=== PATIENT | male | born 1955 | race African-American/Black ===

== ENCOUNTER 2019-06-21 12:06 | Emergency (ER) | payer MEDICARE, MEDICAID ==
[2019-06-21] MEDS ORDERED: NORMAL SALINE 1000 ML 1,000 ML IV ONE (13:19)
[2019-06-21] MEDS ORDERED: MORPHINE SULFATE 10 MG/ML INJ IV ONE (13:19)
--- NOTE | 2019-06-21 13:21 | ER Document Report ---
ED Medical Screen (RME) - General Chief Complaint: Abdominal Pain Stated Complaint: ABDOMINAL PAIN Time Seen by Provider: 06/21/19 13:19 Primary Care Provider: RUTH CORTEZ MD [Primary Care Provider] - Follow up as needed Notes: 63-year-old male with a past medical history of pancreatitis presents emergency department with some abdominal pain. He has had on and off pain for the past 2 weeks. The pain is in his mid upper abdomen. Denies any nausea or vomiting. States he drinks beer every day. States that his blood pressure is also high in the emergency department. He does not take any medications. Denies any other past medical history. Exam: Mildly tender mid abdomen. I have greeted and performed a rapid initial assessment of this patient. A comprehensive ED assessment and evaluation of the patient, analysis of test results and completion of medical decision making process will be conducted by an additional ED providers. TRAVEL OUTSIDE OF THE [place] IN LAST 30 DAYS: No - Related Data Allergies/Adverse Reactions: No Known Allergies Allergy (Verified 06/21/19 12:07) Physical Exam - Vital signs Vitals: Temp Pulse Resp BP Pulse Ox 98 F 76 17 175/114 H 97 06/21/19 12:16 06/21/19 12:16 06/21/19 12:16 06/21/19 12:16 06/21/19 12:16 Course - Vital Signs Vital signs: Temp Pulse Resp BP Pulse Ox 98 F 76 17 175/114 H 97 06/21/19 12:16 06/21/19 12:16 06/21/19 12:16 06/21/19 12:16 06/21/19 12:16 Doctor's Discharge - Discharge Referrals: RUTH CORTEZ MD [Primary Care Provider] - Follow up as needed
[2019-06-21 13:39] LABS: APPEARANCE,URINE CLEAR; BILIRUBIN,URINE NEGATIVE (NEGATIVE); COLOR,URINE STRAW; GLUCOSE, URINE NEGATIVE (NEGATIVE); KETONES,URINE NEGATIVE (NEGATIVE); LEUKOCYTE ESTERASE,URINE NEGATIVE (NEGATIVE); NITRITE,URINE NEGATIVE (NEGATIVE); PROTEIN,URINE NEGATIVE (NEGATIVE); URINE SPECIFIC GRAVITY 1.001; UROBILINOGEN,URINE NEGATIVE mg/dL (<2.0)
[2019-06-21 14:08] LABS: ABSOLUTE LYMPHOCYTES (AUTO) 0.7 10^3/uL (0.5-4.7); ABSOLUTE MONOCYTES (AUTO) 0.3 10^3/uL (0.1-1.4); ABSOLUTE NEUT (AUTO) 1.1 10^3/uL (1.7-8.2); BASOPHILS % (AUTO) 1.9 % (0-2); EOSINOPHILS % (AUTO) 0.7 % (0-6); HEMATOCRIT 33.3 % (37.9-51.0); HEMOGLOBIN 11.2 g/dL (13.5-17.0); LYMPHOCYTES % (AUTO) 32.6 % (13-45); MEAN CORPUSCULAR HEMOGLOBIN 31.7 pg (27.0-33.4); MEAN CORPUSCULAR HGB CONC 33.8 g/dL (32.0-36.0); MEAN CORPUSCULAR VOLUME 94 fl (80-97); MONOCYTES % (AUTO) 15.4 % (3-13); PLATELET COUNT 174 10^3/uL (150-450); RED BLOOD COUNT 3.55 10^6/uL (4.35-5.55); RED CELL DISTRIBUTION WIDTH 15.1 % (11.5-14.0); SEGMENTED NEUTROPHILS % (AUTO) 49.4 % (42-78); TOTAL CELLS COUNTED % (AUTO) 100 %; WHITE BLOOD COUNT 2.1 10^3/uL (4.0-10.5)
[2019-06-21 14:29] LABS: ALBUMIN 3.8 g/dL (3.5-5.0); ALKALINE PHOSPHATASE 104 U/L (38-126); ANION GAP 13 (5-19); ASPARTATE AMINO TRANSFERASE 148 U/L (17-59); BILIRUBIN,DIRECT 0.6 mg/dL (0.0-0.4); BILIRUBIN,TOTAL 0.7 mg/dL (0.2-1.3); CALCIUM 8.4 mg/dL (8.4-10.2); CARBON DIOXIDE 27 mmol/L (22-30); CHLORIDE 94 mmol/L (98-107); GLUCOSE 81 mg/dL (75-110); POTASSIUM 3.7 mmol/L (3.6-5.0); TOTAL PROTEIN 8.6 g/dL (6.3-8.2)
[2019-06-21 14:30] LABS: BLOOD UREA NITROGEN < 2 mg/dL (7-20)
[2019-06-21] MEDS ORDERED: CLONIDINE HCL 0.2 MG TABLET PO ONE (16:04)
[2019-06-21] MEDS ORDERED: LABETALOL HCL INJ 20 MG/4 ML DISP.SYRIN IV ONE ×2 (16:04→17:24)
--- NOTE | 2019-06-21 16:07 | ER Document Report ---
ED GI/ - General Chief Complaint: Abdominal Pain Stated Complaint: ABDOMINAL PAIN Time Seen by Provider: 06/21/19 13:19 Primary Care Provider: RUTH CORTEZ MD [ACTIVE STAFF] - Follow up as needed Mode of Arrival: Ambulatory Information source: Patient, Relative TRAVEL OUTSIDE OF THE [place] IN LAST 30 DAYS: No - HPI Patient complains to provider of: Abdominal pain - pt has h/o pancreatitis and has been drinking beer daily for the past several weeks. He also states he has run out of his BP meds and wants a refill of these. Denies MONAHAN, N,V - Related Data Allergies/Adverse Reactions: No Known Allergies Allergy (Verified 06/21/19 12:07) Past Medical History - General Information source: Patient, Relative - Social History Smoking Status: Never Smoker Frequency of alcohol use: Heavy Drug Abuse: None Family History: None Patient has suicidal ideation: No Patient has homicidal ideation: No Renal/ Medical History: Denies: Hx Peritoneal Dialysis Review of Systems - Review of Systems Constitutional: No symptoms reported EENT: No symptoms reported Cardiovascular: No symptoms reported Respiratory: No symptoms reported Gastrointestinal: See HPI, Abdominal pain Musculoskeletal: No symptoms reported -: Yes All other systems reviewed and negative Physical Exam - Vital signs Vitals: Temp Pulse Resp BP Pulse Ox 98 F 76 17 175/114 H 97 06/21/19 12:16 06/21/19 12:16 06/21/19 12:16 06/21/19 12:16 06/21/19 12:16 - General General appearance: Appears well In distress: None - HEENT Pharynx: Normal Neck: Normal - Respiratory Respiratory status: No respiratory distress Breath sounds: Normal - Cardiovascular Rhythm: Regular Heart sounds: Normal auscultation Murmur: No - Abdominal Inspection: Normal Distension: No distension Bowel sounds: Normal Tenderness: Tender - there is min TTP diffusely without peritoneal signs. Course - Re-evaluation Re-evalutation: 06/21/19 17:58 pt felt much better at time of d/c -- BP 170/100. Expressed desire to go home with family - Vital Signs Vital signs: Temp Pulse Resp BP Pulse Ox 98 F 76 17 186/114 H 97 06/21/19 12:16 06/21/19 12:16 06/21/19 12:16 06/21/19 17:27 06/21/19 12:16 - Laboratory Result Diagrams: 06/21/19 13:41 06/21/19 13:41 Laboratory results interpreted by me: 06/21/19 06/21/19 13:41 13:41 WBC 2.1 L RBC 3.55 L Hgb 11.2 L Hct 33.3 L RDW 15.1 H Monocytes % 15.4 H Absolute Neutrophils 1.1 L Sodium 133.9 L Chloride 94 L BUN < 2 L Creatinine 0.43 L Direct Bilirubin 0.6 H AST 148 H Total Protein 8.6 H - Diagnostic Test Radiology reviewed: Reports reviewed - ct- neg Discharge - Discharge Clinical Impression: Abdominal pain Qualifiers: Abdominal location: generalized Qualified Code(s): R10.84 - Generalized abdominal pain Hypertension Qualifiers: Hypertension type: essential hypertension Qualified Code(s): I10 - Essential (primary) hypertension Condition: Stable Disposition: HOME, SELF-CARE Instructions: Abdominal Pain ([facility]) Additional Instructions: rest, avoid alcohol, take meds as prescribed, return if worse Prescriptions: Clonidine HCl [Catapres 0.2 mg Tablet] 0.2 mg PO Q12 #60 tab Referrals: RUTH CORTEZ MD [ACTIVE STAFF] - Follow up as needed KEVIN CUTLER MD [ACTIVE STAFF] - Follow up as needed
--- NOTE | 2019-06-21 17:44 | RADIOLOGY REPORT (SQ) ---
EXAM DESCRIPTION: CT ABD/PELVIS WITH IV ONLY COMPLETED DATE/TIME: 06/21/2019 5:00 pm REASON FOR STUDY: abd pain COMPARISON: None. TECHNIQUE: CT scan of the abdomen and pelvis performed using helical scanning technique with dynamic intravenous contrast injection. No oral contrast. Images reviewed with lung, soft tissue, and bone w indows. Reconstructed coronal and sagittal MPR images reviewed. Delayed images for evaluation of the urinary system also acquired. All images stored on PACS. All CT scanners at this facility use dose modulation, iterative reconstruction, and/or weight based d osing when appropriate to reduce radiation dose to as low as reasonably achievable (ALARA). [facility]: Dose Right [facility]: CareDose [facility]: Dose Right [facility]: Teradose 4D [facility]: zuuka! CONTRAST TYPE AND DOSE: contrast/concentration: Isovue 350.00 mg/ml; Total Contrast Delivered: 65.0 ml; Total Saline Delivered: 65.0 ml RENAL FUNCTION: GFR > 60. RADIATION DOSE: CT Rad equipment meets quality standard of care and radiation dose reduction techniq ues were employed. CTDIvol: 4.8 mGy. DLP: 547 mGy-cm.. LIMITATIONS: None. FINDINGS: LOWER CHEST: No significant findings. LIVER: Normal size. Diffuse fatty infiltration. No enhancing masses. No dilated ducts. SPLEEN: Normal size. No focal lesions. PANCREAS: No masses identified. No significant calcifications. No adjacent inflammation or peripancre atic fluid collections. Pancreatic duct not dilated. GALLBLADDER: No calcified stones. No inflammatory changes to suggest cholecystitis. ADRENAL GLANDS: No significant masses. RIGHT KIDNEY AND URETER: No cysts identified. No solid masses identified. No calcified stones. No hyd ronephrosis or hydroureter. LEFT KIDNEY AND URETER: No cysts identified. No solid masses identified. No calcified stones. No hydr onephrosis or hydroureter. AORTA AND VESSELS: No aneurysm. No dissection. Renal arteries, SMA, celiac without significant stenos is. RETROPERITONEUM: No bulky retroperitoneal adenopathy. BOWEL AND PERITONEAL CAVITY: No obstruction or inflammatory changes. No free fluid. APPENDIX: Normal. PELVIS: No mass. No free fluid. Unremarkable bladder. ABDOMINAL WALL: No masses. No hernias. BONES: No acute findings. OTHER: No other significant finding. IMPRESSION: NO ACUTE FINDINGS IN THE ABDOMEN OR PELVIS ON CT SCAN WITH IV CONTRAST. Fatty liver. TECHNICAL DOCUMENTATION: JOB ID: [id number] Quality ID # [id number]: Final reports with documentation of one or more dose reduction techniques (e.g., Au tomated exposure control, adjustment of the mA and/or kV according to patient size, use of iterative reconstruction technique) 2010 [employer]- All Rights Reserved Reading location - IP/workstation name: [email or web address]
[2019-06-21 18:53] VITALS: BP 185/117
== END 2019-06-21 18:53 | disposition home or self-care (01) ==
LOC: ER 12:06
DX: R10.84 Generalized abdominal pain (principal); R10.817 Generalized abdominal tenderness; I10 Essential (primary) hypertension; Z76.0 Encounter for issue of repeat prescription
CPT/HCPCS: 96376; 99284; 96361; 96374; 96375; 36415; 83690; 85025; 80053; 81001; 74177; A9270; J3490; J2270; J7030

== ENCOUNTER 2019-07-01 10:16 | Emergency (ER) | payer MEDICARE, MEDICAID ==
[2019-07-01] MEDS ORDERED: THIAMINE HCL 100 MG, FOLIC ACID 1 MG in NORMAL SALINE 250 ML IV ONE (10:39)
--- NOTE | 2019-07-01 10:46 | ER Document Report ---
ED General - General Chief Complaint: Blood Pressure Problem Stated Complaint: UNRESPONSIVE Time Seen by Provider: 07/01/19 10:28 Primary Care Provider: [facility] JCARLOS YOUNGER [NO LOCAL MD] - Follow up in 3-5 days KOKI SANTANA MD [Primary Care Provider] - Follow up as needed Mode of Arrival: Medic Information source: Patient, Friend, Emergency Med Personnel, [facility] Records Notes: 63-year-old male with hypertension, previous history of pancreatitis presents via EMS from home after his sister called him and noticed that he was mumbling. Patient is a known chronic alcoholic and states he had one beer last night. Upon EMS arrival they report that the patient was unresponsive to painful stimuli. BGL at that time was 65 and patient was administered glucose with a repeat glucose of 161 upon arrival to the emergency department. Patient is alert, awake and oriented x2. He knows his birthday where he is but cannot tell me the year. Patient's cousin is at the bedside and states that the patient has been slowly declining due to his alcoholism. He has lost weight, become more confused and he refuses to go to his doctor's office or eat. Patient has no ph ysical complaints at this time. He states that he did eat a sandwich this morning. Patient was seen in the emergency department approximately 10 days ago and started on clonidine 0.2 mg twice daily TRAVEL OUTSIDE OF THE [place] IN LAST 30 DAYS: No - HPI Onset: Just prior to arrival Onset/Duration: Sudden Quality of pain: No pain Severity: None Pain Level: Denies Associated symptoms: None, Slow to respond. denies: Chest pain, Diarrhea, Headache, Nausea, Vomiting, Shortness of breath, Weakness Exacerbated by: Denies Relieved by: Denies Similar symptoms previously: Yes Recently seen / treated by doctor: Yes - Related Data Allergies/Adverse Reactions: No Known Allergies Allergy (Verified 07/01/19 10:19) Past Medical History - General Information source: Patient, Relative, Emergency Med Personnel, [facility] Records - Social History Smoking Status: Never Smoker Chew tobacco use (# tins/day): No Frequency of alcohol use: Heavy Drug Abuse: None Lives with: Alone Family History: None Patient has suicidal ideation: No Patient has homicidal ideation: No - Past Medical History Cardiac Medical History: Reports: Hx Hypertension Renal/ Medical History: Denies: Hx Peritoneal Dialysis Review of Systems - Review of Systems Notes: REVIEW OF SYSTEMS: CONSTITUTIONAL : Denies fever, chills, or sweats. Denies recent illness. Denies weight loss, recent hospitalizations. EENT: Denies visual changes, eye pain. Denies sore throat, oral lesions, difficulty swallowing. CARDIOVASCULAR: Denies chest pain. Denies palpitations. Denies lower extremity edema. RESPIRATORY: Denies cough. Denies shortness of breath, wheezing. GASTROINTESTINAL: Denies abdominal pain or distention. Denies nausea, vomiting, or diarrhea. Denies blood in vomitus, stools, or per rectum. Denies black, tarry stools. Denies constipation. GENITOURINARY: Denies difficulty urinating, painful urination, frequency, blood in urine, testicular pain or penile discharge. MUSCULOSKELETAL: Denies back or neck pain or stiffness. Denies joint pain or swelling. SKIN: Denies rash, lesions or sores. HEMATOLOGIC : Denies easy bruising or bleeding. LYMPHATIC: Denies swollen glands. NEUROLOGICAL: Denies confusion or altered mental status. Denies loss of consciousness. Denies dizziness or lightheadedness. Denies headache. Denies weakness or paralysis. Denies problems difficulty with ambulation, slurred speech. Denies sensory loss, numbness, or tingling. Denies seizures. PSYCHIATRIC: Denies anxiety or stress. Denies depression, suicidal ideation, Physical Exam - Vital signs Vitals: Resp Pulse Ox 11 L 97 07/01/19 10:24 07/01/19 10:24 - Notes Notes: PHYSICAL EXAMINATION: GENERAL: Unkept well-nourished and in no acute distress. HEAD: Atraumatic, normocephalic. EYES: Pupils equal round and reactive to light, extraocular movements intact, sclera anicteric, conjunctiva are normal. ENT: Nares patent, oropharynx clear without exudates. Moist mucous membranes. NECK: Normal range of motion, supple without lymphadenopathy LUNGS: Breath sounds clear to auscultation bilaterally and equal. No wheezes rales or rhonchi. HEART: Regular rate and rhythm without murmurs ABDOMEN: Soft, nontender, nondistended abdomen. No guarding, no rebound. left inguinal swelling,non-tender. No erythema,warmth, fluctuance. suspect hernia Musculoskeletal: Normal range of motion, mild nonpitting edema bilaterally. No cyanosis. NEUROLOGICAL: Cranial nerves grossly intact. Normal speech, normal gait. Normal sensory, motor exams PSYCH: Normal mood, normal affect. SKIN: Chronic skin color changes. Course - Re-evaluation Re-evalutation: Temp Pulse Resp BP Pulse Ox 97.7 F 15 151/96 H 96 07/01/19 10:37 07/01/19 10:36 07/01/19 10:33 07/01/19 10:36 07/01/19 10:44 63-year-old male with a history of alcoholism presents via EMS after the sister became concerned while talking to him on the phone. Upon their arrival EMS reported that the patient was unresponsive to painful stimuli. Sugar found to be 65. Dextrose was administered and upon patient's arrival to the emergency department he is alert and oriented x2 which the cousin reports is the patient's baseline. EMS reported that the patient was initially hypotensive with a blood pressure of 80/40. After 500 cc of IV fluids patient's recent blood pressure is 139/90 with a heart rate of 78. 07/01/19 16:12 Rectal exam is negative for occult blood. Patient did receive calcium gluco dang, thiamine, folate. I did discuss patient with hospitalist who feels the patient does not need admission at this time and that his pancytopenia is common with alcoholism. Family is at the bedside and states that they do not believe the patient is interested and stopping drinking. Patient does not have a power of director internal control. Patient's blood pressure has responded to fluids and is now 151/96. 07/01/19 17:45 I have spoken at length with the family regarding the patient's opportunity to go to [facility] here in [place]. Family members at the bedside are trying to convince the patient to voluntarily go. Patient is considering. 07/01/19 18:11 Patient agreeable to rehab. Nurse calling facility for bed availability. Patient repeat alcohol is 210. Calcium corrected. Minor tremors but no tachycardia, delirium. Cooperative, conversing with family. Valium administered for concern for withdrawl prior to ETOH result. He is awake eating and cooperative. States "I'll go" when asked if he was willing to attempt detox. This is voluntary. Patient to be discharged and family at bedside stating they will bring patient to [facility]. 07/03/19 00:39 - Vital Signs Vital signs: Temp Pulse Resp BP Pulse Ox 97.7 F 13 176/108 H 98 07/01/19 10:37 07/01/19 19:01 07/01/19 19:01 07/01/19 19:01 - Laboratory Result Diagrams: 07/01/19 10:25 07/01/19 17:45 Laboratory results interpreted by me: 07/01/19 07/01/19 07/01/19 10:25 10:25 10:25 WBC 1.6 L RBC 2.91 L Hgb 9.2 L Hct 27.5 L RDW 15.0 H Plt Count 105 L Abs Neuts (Manual) 1.1 L Sodium 132.0 L Potassium 3.4 L Chloride 96 L BUN 2 L Glucose 150 H POC Glucose Lactic Acid 2.6 H Calcium 6.9 L* AST 117 H Ammonia Albumin 2.8 L Urine Glucose (UA) Urine Blood Salicylates < 1.0 L Acetaminophen < 10 L Serum Alcohol 314 H* 07/01/19 07/01/19 07/01/19 10:28 11:10 13:42 WBC RBC Hgb Hct RDW Plt Count Abs Neuts (Manual) Sodium Potassium Chloride BUN Glucose POC Glucose 176 H Lactic Acid Calcium AST Ammonia < 8.7 L Albumin Urine Glucose (UA) 50 H Urine Blood SMALL H Salicylates Acetaminophen Serum Alcohol 07/01/19 07/01/19 17:45 18:00 WBC RBC Hgb Hct RDW Plt Count Abs Neuts (Manual) Sodium 134.8 L Potassium Chloride 93 L BUN 3 L Glucose POC Glucose Lactic Acid 4.0 H Calcium AST Ammonia Albumin Urine Glucose (UA) Urine Blood Salicylates Acetaminophen Serum Alcohol - Diagnostic Test Radiology reviewed: Image reviewed, Reports reviewed - EKG Interpretation by Me EKG shows normal: Sinus rhythm Rate: Normal Rhythm: NSR - QTC 477 Discharge - Discharge Clinical Impression: Left inguinal hernia, Alcoholism, Hypocalcemia Alcohol intoxication Qualifiers: Complication of substance-induced condition: uncomplicated Qualified Code(s): F10.920 - Alcohol use, unspecified with intoxication, uncomplicated Malnutrition Qualifiers: Malnutrition type: protein-calorie malnutrition Protein-calorie malnutrition severity: mild Qualified Code(s): E44.1 - Mild protein-calorie malnutrition HTN (hypertension) Qualifiers: Hypertension type: unspecified Qualified Code(s): I10 - Essential (primary) hypertension Condition: Good Disposition: OTHER Instructions: Chronic Alcoholism ([facility]), Hernia ([facility]) Additional Instructions: Follow up with your [id number] hours for further care or return to the ED IMMEDIATELY if symptoms worsen or you have any concerns. If you cannot afford to follow up with your primary care physician a list of low cost clinics have been provided at the end of your discharge papers as well. Most prescribed medications have multiple side effects. The safest thing to do is when filling your prescription speak to your pharmacist regarding possible interactions with your normal home medications and over the counter medications such as Ibuprofen, Tylenol, Benadryl. If you experience any symptoms that cause you discomfort or concern you should discontinue the medication immediately and return to the emergency room or call your primary care physician. Recommendations: It is recommended to followup with a primary care doctor within the next 2 days. If you do not have a primary care doctor or you are unable to get an apointment during that time, I left the number for some internal medicine physicians that are [facility] Dr. Jeyson Hernandez [facility] [address], [place] [address] [phone] Dr Araujo Address: [address] [place] [address] Dr Perez Address: [address] [place] [address] Prescriptions: Clonidine HCl [Catapres 0.2 mg Tablet] 0.2 mg PO Q12 #60 tab Forms: Elevated Blood Pressure Referrals: KOKI SANTANA MD [Primary Care Provider] - Follow up as needed [facility] [NO LOCAL MD] - Follow up in 3-5 days
[2019-07-01 11:00] LABS: VENOUS BLOOD HCO3 27.2 mmol/L (20-32); VENOUS BLOOD PCO2 45.6 mmHg (35-63); VENOUS BLOOD PH 7.39 (7.30-7.42)
[2019-07-01 11:03] LABS: HEMATOCRIT 27.5 % (37.9-51.0); HEMOGLOBIN 9.2 g/dL (13.5-17.0); MEAN CORPUSCULAR HEMOGLOBIN 31.7 pg (27.0-33.4); MEAN CORPUSCULAR HGB CONC 33.6 g/dL (32.0-36.0); MEAN CORPUSCULAR VOLUME 95 fl (80-97); PLATELET COUNT 105 10^3/uL (150-450); RED BLOOD COUNT 2.91 10^6/uL (4.35-5.55)
[2019-07-01 11:24] LABS: ALBUMIN 2.8 g/dL (3.5-5.0); ALKALINE PHOSPHATASE 69 U/L (38-126); ANION GAP 12 (5-19); ASPARTATE AMINO TRANSFERASE 117 U/L (17-59); BILIRUBIN,DIRECT 0.3 mg/dL (0.0-0.4); BILIRUBIN,TOTAL 0.4 mg/dL (0.2-1.3); BLOOD UREA NITROGEN 2 mg/dL (7-20); CARBON DIOXIDE 24 mmol/L (22-30); CHLORIDE 96 mmol/L (98-107); GLUCOSE 150 mg/dL (75-110); POTASSIUM 3.4 mmol/L (3.6-5.0); TOTAL PROTEIN 6.3 g/dL (6.3-8.2)
[2019-07-01 11:27] LABS: ACETAMINOPHEN < 10 ug/mL (10-30); SALICYLATE < 1.0 mg/dL (2.0-20.0)
[2019-07-01 11:29] LABS: WHITE BLOOD COUNT 1.6 10^3/uL (4.0-10.5)
[2019-07-01 11:33] LABS: ABSOLUTE LYMPHOCYTES# (MANUAL) 0.5 10^3/uL (0.5-4.7); ABSOLUTE MONOCYTES # (MANUAL) 0.1 10^3/uL (0.1-1.4); BASOPHILS % (MANUAL) 0 % (0-2); EOSINOPHILS % (MANUAL) 0 % (0-6); LYMPHOCYTES % (MANUAL) 30 % (13-45); MONOCYTES % (MANUAL) 4 % (3-13); SEGMENTED NEUTROPHILS % (MAN) 66 % (42-78); TOTAL CELLS COUNTED 50
[2019-07-01 11:34] LABS: APPEARANCE,URINE CLEAR; BILIRUBIN,URINE NEGATIVE (NEGATIVE); COLOR,URINE STRAW; GLUCOSE, URINE 50 mg/dL (NEGATIVE); KETONES,URINE NEGATIVE (NEGATIVE); LEUKOCYTE ESTERASE,URINE NEGATIVE (NEGATIVE); NITRITE,URINE NEGATIVE (NEGATIVE); PROTEIN,URINE NEGATIVE (NEGATIVE); URINE SPECIFIC GRAVITY 1.003; UROBILINOGEN,URINE NEGATIVE mg/dL (<2.0)
[2019-07-01 11:35] LABS: ANISOCYTOSIS 1+; PAPPENHEIMER BODIES PRESENT; POIKILOCYTOSIS SLIGHT; TARGET CELLS 1+; TEAR DROP CELLS SLIGHT
[2019-07-01 11:36] LABS: ALCOHOL 314 mg/dL (NONE DETECTED); CALCIUM 6.9 mg/dL (8.4-10.2); PLATELET COMMENT DECREASED
[2019-07-01 11:49] LABS: URINE AMPHETAMINES SCREEN NEGATIVE; URINE BARBITURATES SCREEN NEGATIVE; URINE BENZODIAZEPINES SCREEN NEGATIVE; URINE COCAINE SCREEN NEGATIVE; URINE MARIJUANA (THC) SCREEN NEGATIVE; URINE METHADONE SCREEN NEGATIVE; URINE PHENCYCLIDINE SCREEN NEGATIVE
--- NOTE | 2019-07-01 11:58 | RADIOLOGY REPORT (SQ) ---
EXAM DESCRIPTION: CT HEAD WITHOUT COMPLETED DATE/TIME: 07/01/2019 11:29 am REASON FOR STUDY: ams COMPARISON: None. TECHNIQUE: Axial images acquired through the brain without intravenous contrast. Images reviewed wi th bone, brain and subdural windows. Additional sagittal and coronal reconstructions were generated. Images stored on PACS. All CT scanners at this facility use dose modulation, iterative reconstruction, and/or weight based d osing when appropriate to reduce radiation dose to as low as reasonably achievable (ALARA). [facility]: Dose Right [facility]: CareDose [facility]: Dose Right [facility]: Teradose 4D [facility]: [employer] RADIATION DOSE: CT Rad equipment meets quality standard of care and radiation dose reduction techniq ues were employed. CTDIvol: 53.2 mGy. DLP: 991 mGy-cm. mGy. LIMITATIONS: None. FINDINGS: VENTRICLES: Global prominence. CEREBRUM: No masses. No hemorrhage. No midline shift. No evidence for acute infarction. Normal gra y/white matter differentiation. No areas of low density in the white matter. CEREBELLUM: No masses. No hemorrhage. No alteration of density. No evidence for acute infarction. EXTRAAXIAL SPACES: No hemorrhage or mass. Mild prominence presumably related atrophy. ORBITS AND GLOBE: No intra- or extraconal masses. Normal contour of globe without masses. CALVARIUM: No fracture. PARANASAL SINUSES: No fluid or mucosal thickening. SOFT TISSUES: No mass or hematoma. OTHER: No other significant finding. IMPRESSION: Atrophy. Associated ventriculomegaly. No acute or suspicious intracranial abnormality appreciated. EVIDENCE OF ACUTE STROKE: NO. COMMENT: Quality ID # [id number]: Final reports with documentation of one or more dose reduction techniques (e.g., Automated exposure control, adjustment of the mA and/or kV according to patient size, use of iterative reconstruction technique) TECHNICAL DOCUMENTATION: JOB ID: [id number] [address]- All Rights Reserved Reading location - IP/workstation name: [email or web address]
--- NOTE | 2019-07-01 12:07 | RADIOLOGY REPORT (SQ) ---
EXAM DESCRIPTION: CHEST 2 VIEWS COMPLETED DATE/TIME: 07/01/2019 11:34 am REASON FOR STUDY: ams COMPARISON: None. EXAM PARAMETERS: NUMBER OF VIEWS: two views TECHNIQUE: Digital Frontal and Lateral radiographic views of the chest acquired. RADIATION DOSE: NA LIMITATIONS: none FINDINGS: LUNGS AND PLEURA: No opacities, masses or pneumothorax. No pleural effusion. MEDIASTINUM AND HILAR STRUCTURES: No masses or contour abnormalities. HEART AND VASCULAR STRUCTURES: Heart normal size. No evidence for failure. BONES: Old appearing left-sided rib fractures. HARDWARE: None in the chest. OTHER: No other significant finding. IMPRESSION: NO ACUTE RADIOGRAPHIC FINDING IN THE CHEST. TECHNICAL DOCUMENTATION: JOB ID: [id number]- All Rights Reserved Reading location - IP/workstation name: [email or web address]
[2019-07-01] MEDS ORDERED: CALCIUM GLUCONATE 1000 MG/10 ML INJ IV ONE ×2 (12:32→16:02)
--- NOTE | 2019-07-01 14:39 | EKG REPORT ---
SEVERITY:- BORDERLINE ECG - SINUS RHYTHM PROBABLE LEFT ATRIAL ABNORMALITY BORDERLINE PROLONGED QT INTERVAL : Confirmed by: Akila Galeana 01-Jul-2019 14:39:05
[2019-07-01] MEDS ORDERED: RINGERS SOLUTION,LACTATED 1,000 ML IV ONE (16:02)
[2019-07-01] MEDS ORDERED: DIAZEPAM INJ 10 MG/2 ML DISP.SYRIN IV ONE ×2 (16:59→18:10)
--- NOTE | 2019-07-01 18:03 | RADIOLOGY REPORT (SQ) ---
EXAM DESCRIPTION: CT ABD/PELVIS WITH IV ONLY COMPLETED DATE/TIME: 07/01/2019 5:42 pm REASON FOR STUDY: left inguinal mass COMPARISON: 06/21/2019 TECHNIQUE: CT scan of the abdomen and pelvis performed using helical scanning technique with dynamic intravenous contrast injection. No oral contrast. Images reviewed with lung, soft tissue, and bone windows. Reconstructed coronal and sagittal MPR images reviewed. Delayed images for evaluation of the urinary system also acquired. All images stored on PACS. All CT scanners at this facility use dose modulation, iterative reconstruction, and/or weight based d osing when appropriate to reduce radiation dose to as low as reasonably achievable (ALARA). [facility]: Dose Right [facility]: CareDose [facility]: Dose Right [facility]: Teradose 4D [facility]: [employer] CONTRAST TYPE AND DOSE: contrast/concentration: Isovue 350.00 mg/ml; Total Contrast Delivered: 64.0 ml; Total Saline Delivered: 38.0 ml RENAL FUNCTION: BUN 2 creatinine 0.6 RADIATION DOSE: CT Rad equipment meets quality standard of care and radiation dose reduction techniq ues were employed. CTDIvol: 4.8 - 5.5 mGy. DLP: 530 mGy-cm.. LIMITATIONS: None. FINDINGS: LOWER CHEST: No significant findings. No nodules or infiltrates. LIVER: The liver is diffusely hypoattenuating. There is no mass. SPLEEN: Normal size. No focal lesions. PANCREAS: No masses. No significant calcifications. No adjacent inflammation or peripancreatic fluid collections. Pancreatic duct not dilated. GALLBLADDER: No identified stones by CT criteria. No inflammatory changes to suggest cholecystitis. ADRENAL GLANDS: No significant masses or asymmetry. RIGHT KIDNEY AND URETER: No solid masses. No significant calcifications. No hydronephrosis or hyd roureter. LEFT KIDNEY AND URETER: No solid masses. No significant calcifications. No hydronephrosis or hydr oureter. AORTA AND VESSELS: No aneurysm. No dissection. Renal arteries, SMA, celiac without stenosis. RETROPERITONEUM: No retroperitoneal adenopathy, hemorrhage or masses. BOWEL AND PERITONEAL CAVITY: No masses or inflammatory changes. No free fluid or peritoneal masses. APPENDIX: Not identified. PELVIS: Urinary bladder is normal. No pelvic mass or fluid collection. There is a very small left i nguinal hernia containing unobstructed bowel. ABDOMINAL WALL: See above. BONES: No significant or acute findings. OTHER: No other significant finding. IMPRESSION: Hepatic steatosis. Left inguinal hernia containing unobstructed bowel. No acute findin g. TECHNICAL DOCUMENTATION: JOB ID: [id number] Quality ID # [id number]: Final reports with documentation of one or more dose reduction techniques (e.g., Au tomated exposure control, adjustment of the mA and/or kV according to patient size, use of iterative reconstruction technique) 2010 [employer]- All Rights Reserved Reading location - IP/workstation name: [email or web address]
[2019-07-01 18:29] LABS: ALCOHOL 210 mg/dL (NONE DETECTED); ANION GAP 15 (5-19); BLOOD UREA NITROGEN 3 mg/dL (7-20); CALCIUM 8.9 mg/dL (8.4-10.2); CARBON DIOXIDE 27 mmol/L (22-30); CHLORIDE 93 mmol/L (98-107); GLUCOSE 86 mg/dL (75-110); POTASSIUM 3.9 mmol/L (3.6-5.0)
[2019-07-01] MEDS ORDERED: CLONIDINE HCL 0.2 MG TABLET PO ONE (18:36)
[2019-07-01 19:23] VITALS: BP 176/108
[2019-07-02 12:46] LABS: PATH REVIEW PATHOLOGIST REVIEWED
== END 2019-07-01 19:28 | disposition other institution (70) ==
LOC: ER 10:16
DX: K40.90 Unilateral inguinal hernia, without obstruction or gangrene, not specified as recurrent (principal); R40.4 Transient alteration of awareness; E83.51 Hypocalcemia; F10.229 Alcohol dependence with intoxication, unspecified; E44.1 Mild protein-calorie malnutrition; I10 Essential (primary) hypertension
CPT/HCPCS: 93005; 96376; 99284; 96361; 96375; 96365; 36415; 87040; 82962; 80307 ×4; 82140; 85025; 80053; 81001; 84484; 82803; 83605; 71046; 70450; 74177; 93010; J0610; A9270; J3360; J3490; J3411; J7050; J7120